=== PATIENT | male | born 1945 | race Caucasian/White ===

== ENCOUNTER 2017-05-09 13:32 | Observation (INO) | payer OTHER, MEDICARE ==
[~2017-05-09] VITALS: Ht 167.6 cm; Wt 109.0 kg
[2017-05-09 13:41] VITALS: BP 139/71; PULSE 75; RESP 17; TEMP 97.7; O2SAT 96
[2017-05-09 13:47] VITALS: BP 139/71; PULSE 85; RESP 23; O2SAT 96
[2017-05-09] MEDS ORDERED: ATOR1TAB18 PO (14:05)
[2017-05-09] MEDS ORDERED: METF1000 PO (14:05)
[2017-05-09] MEDS ORDERED: PLAV75TA29 PO (14:05)
[2017-05-09] MEDS ORDERED: GABA600T PO (14:05)
[2017-05-09] MEDS ORDERED: AMLO10TA2 PO (14:05)
[2017-05-09] MEDS ORDERED: LANTUS2P SQ (14:05)
[2017-05-09] MEDS ORDERED: COUM1TAB PO (14:05)
[2017-05-09] MEDS ORDERED: METO100T PO (14:05)
[2017-05-09] MEDS ORDERED: EMPA1TAB3 PO (14:05)
[2017-05-09] MEDS ORDERED: ALLO100T PO (14:05)
[2017-05-09] MEDS ORDERED: ASPI1TAB91 PO (14:05)
[2017-05-09 14:14] LABS: AUTOMATED NEUTROPHIL # 12.9 TH/MM3 (1.8-7.7); BASOPHIL # 0.1 TH/MM3 (0-0.2); BASOPHIL % 0.7 % (0.0-2.0); EOSINOPHIL # 0.2 TH/MM3 (0-0.4); EOSINOPHIL % 1.4 % (0.0-4.0); HEMATOCRIT 39.7 % (39.0-51.0); HEMO FLAGS DIFF FINAL; LYMPH % 11.7 % (9.0-44.0); LYMPHOCYTE # 1.9 TH/MM3 (1.0-4.8); MEAN CELL VOLUME 91.2 FL (80.0-100.0); MEAN CORPUSCULAR HGB CONC 31.8 % (32.0-36.0); NEUT % 81.2 % (16.0-70.0); PLATELET COUNT 460 TH/MM3 (150-450); RED BLOOD COUNT 4.36 MIL/MM3 (4.50-5.90); RED CELL DISTRIBUTION WIDTH 15.3 % (11.6-17.2); WHITE BLOOD COUNT 15.9 TH/MM3 (4.0-11.0)
[2017-05-09 14:27] LABS: ALT (GPT) 25 U/L (12-78); ANION GAP 9 MEQ/L (5-15); AST (GOT) 19 U/L (15-37); BICARBONATE 30.8 MEQ/L (21.0-32.0); BLOOD UREA NITROGEN 20 MG/DL (7-18); CHLORIDE 98 MEQ/L (98-107); GLOMERULAR FILTRATION RATE 48 ML/MIN (>89); MAGNESIUM 1.9 MG/DL (1.5-2.5); POTASSIUM 4.1 MEQ/L (3.5-5.1); SODIUM (NA) 138 MEQ/L (136-145)
[2017-05-09 14:30] LABS: PROTHROMBIN TIME - PATIENT 105.3 SEC (9.8-11.6)
--- NOTE | 2017-05-09 14:34 | PD ---
HPI Chief Complaint: Pain: Acute or Chronic Time Seen by Provider: 14:29 Travel History International Travel<30 days: No Contact w/Intl Traveler<30days: No Traveled to known affect area: No History of Present Illness HPI 71-year-old male that presents to the ED for evaluation of chest pain to raise to the scapula. Per patient in only comes with inspiration. Patient states that last week he had an elective CABG 1 as well as aortic valve replacement. This was done and a [facility] in [place]. Per patient she's been compliant with the medications and takes Coumadin. Per patient today he woke up with this discomfort. Patient went to the [facility] and they sent him here for evaluation. He states that the pain is 6 out of 10 and gets worse with deep breaths. Otherwise he has not discomfort. He denies any injury or trauma. He denies any fevers chills or sweats. No cough or runny nose. Having bowel movements as well as urine. He has no allergies to medication. No head injury. No headache. He has not taken his medications this morning as he went to the [facility] secondary to his symptoms. He has not prepress specialist in the area of. With the [facility] for most of his care. From records Dr. Fallon. Unclear as to the name of the surgeon. PFSH Past Medical History Cardiovascular Problems: Yes (VALVE REPAIR) High Cholesterol: Yes Chest Pain: Yes Diabetes: Yes Patient Takes Glucophage: Yes Gout: Yes Hiatal Hernia: Yes Hypertension: Yes Inguinal Hernia: Yes Medical other: Yes (VERTIGO) Myocardial Infarction: Yes Pneumonia: Yes Triglycerides - High: Yes Influenza Vaccination: Yes Past Surgical History Cardiac Surgery: Yes (VALVE REPAIR / CABG X 1 / 3 STENTS) Other Surgery: Yes (NASAL SURGERY / RT EYE SURGERY) Social History Alcohol Use: No Tobacco Use: No Substance Use: No Allergies-Medications (Allergen,Severity, Reaction): Coded Allergies: No Known Allergies (Unverified , 05/09/17) Reported Meds & Prescriptions Reported Meds & Active Scripts Active Reported Gabapentin 600 Mg Tab 300 Mg PO TID Allopurinol 100 Mg Tab 400 Mg PO DAILY Metoprolol Tartrate 100 Mg Tab 200 Mg PO BID Plavix (Clopidogrel Bisulfate) 75 Mg Tab 75 Mg PO DAILY Atorvastatin (Atorvastatin Calcium) 80 Mg Tab 40 Mg PO HS Amlodipine (Amlodipine Besylate) 10 Mg Tab 10 Mg PO DAILY Lantus Inj (Insulin Glargine) 100 Unit/Ml Inj 50 Units SQ DAILY Aspirin Adult Low Strength (Aspirin) 81 Mg Tabdr 81 Mg PO DAILY Metformin (Metformin HCl) 1,000 Mg Tab 1,000 Mg PO BID With meals Jardiance (Empagliflozin) 25 Mg Tab 12.5 Mg PO DAILY Coumadin (Warfarin) Unknown Strength Tab 1 Tab PO DAILY Review of Systems Except as stated in HPI: all other systems reviewed are Neg Physical Exam Narrative GENERAL: SKIN: Warm and dry. Patient has a almost 15-20 cm surgical scar on the mid chest. No sign of infection or deformity noted. Some inflammatory changes noted. HEAD: Atraumatic. Normocephalic. EYES: Pupils equal and round 4 mm reactive to light and accommodation. No scleral icterus. No injection or drainage. ENT: No nasal bleeding or discharge. Mucous membranes pink and moist. Tongue is midline. No uvula deviation. NECK: Trachea midline. No JVD. CARDIOVASCULAR: Regular rate and rhythm. No murmurs, S3, S4. RESPIRATORY: No accessory muscle use. Clear to auscultation. Breath sounds equal bilaterally. GASTROINTESTINAL: Abdomen soft, non-tender, nondistended. Hepatic and splenic margins not palpable. MUSCULOSKELETAL: Extremities without clubbing, cyanosis, or edema. No obvious deformities. NEUROLOGICAL: Awake and alert. No obvious cranial nerve deficits. Motor grossly within normal limits. Five out of 5 muscle strength in the arms and legs. Normal speech. PSYCHIATRIC: Appropriate mood and affect; insight and judgment normal. Data Data Last Documented VS Vital Signs Date Time Temp Pulse Resp B/P Pulse Ox O2 Delivery O2 Flow Rate FiO2 05/09/17 15:29 84 12 126/62 95 Room Air 05/09/17 13:41 97.7 Orders Electrocardiogram (05/09/17 13:49) Complete Blood Count With Diff (05/09/17 13:49) Comprehensive Metabolic Panel (05/09/17 13:49) Ckmb (Isoenzyme) Profile (05/09/17 13:49) Troponin I (05/09/17 13:49) B-Type Natriuretic Peptide (05/09/17 13:49) Prothrombin Time / Inr (Pt) (05/09/17 13:49) Act Partial Throm Time (Ptt) (05/09/17 13:49) Blood Culture (05/09/17 13:49) Lipase (7/3/17 13:49) Urinalysis - C+S If Indicated (05/09/17 13:49) Magnesium (Mg) (05/09/17 13:49) Thyroid Stimulating Hormone (05/09/17 13:49) Chest, Single Ap (05/09/17 13:49) Iv Access Insert/Monitor (05/09/17 13:49) Ecg Monitoring (05/09/17 13:49) Oximetry (05/09/17 13:49) Cta Thor Abd Aorta W Iv C W3d (05/09/17 ) Iohexol 350 Inj (Omnipaque 350 Inj) (05/09/17 15:13) Admit Order (Ed Use Only) (05/09/17 16:18) Labs Laboratory Tests Test 05/09/17 05/09/17 05/09/17 14:05 14:06 15:00 Sodium Level 138 MEQ/L Potassium Level 4.1 MEQ/L Chloride Level 98 MEQ/L Carbon Dioxide Level 30.8 MEQ/L Anion Gap 9 MEQ/L Blood Urea Nitrogen 20 MG/DL Creatinine 1.44 MG/DL Estimat Glomerular Filtration 48 ML/MIN Rate Random Glucose 127 MG/DL Calcium Level 9.6 MG/DL Magnesium Level 1.9 MG/DL Total Bilirubin 0.7 MG/DL Aspartate Amino Transf 19 U/L (AST/SGOT) Alanine Aminotransferase 25 U/L (ALT/SGPT) Alkaline Phosphatase 122 U/L Total Creatine Kinase 49 U/L Troponin I 0.03 NG/ML B-Type Natriuretic Peptide 60 PG/ML Total Protein 8.5 GM/DL Albumin 3.8 GM/DL Lipase 162 U/L Thyroid Stimulating Hormone 5.350 uIU/ML 3rd Gen White Blood Count 15.9 TH/MM3 Red Blood Count 4.36 MIL/MM3 Hemoglobin 12.6 GM/DL Hematocrit 39.7 % Mean Corpuscular Volume 91.2 FL Mean Corpuscular Hemoglobin 29.0 PG Mean Corpuscular Hemoglobin 31.8 % Concent Red Cell Distribution Width 15.3 % Platelet Count 460 TH/MM3 Mean Platelet Volume 8.0 FL Neutrophils (%) (Auto) 81.2 % Lymphocytes (%) (Auto) 11.7 % Monocytes (%) (Auto) 5.0 % Eosinophils (%) (Auto) 1.4 % Basophils (%) (Auto) 0.7 % Neutrophils # (Auto) 12.9 TH/MM3 Lymphocytes # (Auto) 1.9 TH/MM3 Monocytes # (Auto) 0.8 TH/MM3 Eosinophils # (Auto) 0.2 TH/MM3 Basophils # (Auto) 0.1 TH/MM3 CBC Comment DIFF FINAL Differential Comment Prothrombin Time 105.3 SEC Prothromb Time International 8.7 RATIO Ratio Activated Partial 63.0 SEC Thromboplast Time Urine Color LIGHT-RED Urine Turbidity CLEAR Urine pH 6.0 Urine Specific [place] 1.026 Urine Protein TRACE mg/dL Urine Glucose (UA) 1000 mg/dL Urine Ketones NEG mg/dL Urine Occult Blood NEG Urine Nitrite NEG Urine Bilirubin NEG Urine Urobilinogen 2.0 MG/DL Urine Leukocyte Esterase NEG Urine RBC 1 /hpf Urine WBC 2 /hpf Urine Squamous Epithelial <1 /hpf Cells Microscopic Urinalysis Comment CULT NOT INDICATED MDM Medical Decision Making Medical Screen Exam Complete: Yes Emergency Medical Condition: Yes Medical Record Reviewed: Yes Interpretation(s) CBC & BMP Diagram 05/09/17 14:05 05/09/17 14:06 LFTs within normal limits. Lipase within normal limits. TSH of 5. Last Impressions Chest X-Ray 05/09/17 1349 Signed Impressions: Service Date/Time: Tuesday, May 09, 2017 13:48 - CONCLUSION: No acute disease. Jax Ku MD CT of the aorta did not show any sign of dissection or disease other than possible gallbladder disease or inflammation. Troponin and CK-MB negative. EKG shows sinus rhythm with no sign of acute ischemia or arrhythmia read by me and attending. Coags shows INR of 8.7 UA negative Differential Diagnosis Chest pain versus PE versus aortic dissection versus ACS versus hypertension versus pleurisy versus pneumothorax versus pneumonia versus infection postsurgery Narrative Course 71-year-old male that presents to the ED for evaluation of chest pain. Patient was properly examined and was found to have signs and symptoms of unclear etiology. Patient had recent cardiac surgery. Labs and imaging ordered. Case discussed with my attending Dr. Martinez who agrees with plan. She recommends CT of the thorax of the aorta. This was all ordered. Labs and imaging were essentially unremarkable other than for elevated levels account as well as very high INR. No sign of infection from the surgical scar. My attending Dr. Martinez evaluated the patient with me and agrees with plan. Unfortunately patient does have an aortic valve replacement and his Coumadin level was way too high. She recommends admission to the medical team for evaluation of Coumadin toxicity. She recommends against antidote for the patient secondary to patient having recent valve replacement and requiring anticoagulations for this. [facility] was paged and Dr Singleton agrees to admission. At 1630 Dr. Huang came and evaluated the patient and recommended that the patient be discharged secondary to fall is not using anything to prevent the toxicity. My attending Dr. Martinez myself and Dr. Huang spoke with the patient at length. He agrees with this plan. Patient was told to hold of his Coumadin for the next 3 days and get his INR rechecked in 3 days as he already has an appointment on . She will be discharged home. Procedures EKG Prior to Arrival: No Diagnosis Primary Impression: Warfarin-induced coagulopathy Additional Impression: Chest pain Qualified Code: R07.1 - Chest pain on breathing Admitting Information Admitting Physician Requests: Observation Patient Instructions: General Instructions Additional Instructions: Do not take your Coumadin for 3 days and get her blood checked on . See ED for any worsening symptoms. Med/Other Pt SpecificInfo: Med Stopped (stop coumadin till ) Disposition: 01 DISCHARGE HOME Condition: Stable Rony Gonzalez May 09, 2017 14:34
--- NOTE | 2017-05-09 14:35 | RADRPT ---
EXAM DATE/TIME: 05/09/2017 13:48 [facility] COMPARISON: No previous studies available for comparison. INDICATIONS : Mid thoracic back pain with shortness of breath. S/P CABG [place] 4 weeks ago. MEDICAL HISTORY : Congestive heart failure. Myocardial infarction. SURGICAL HISTORY : CABG. ENCOUNTER: Initial ACUITY: 1 day PAIN SCORE: 9/10 LOCATION: Left chest FINDINGS: A single view of the chest demonstrates the lungs to be symmetrically aerated without evidence of mas s, infiltrate or effusion. There is some elevation of the right hemidiaphragm. The cardiomediastinal contours are unremarkable. There is evidence of previous cardiothoracic surgery. Osseous structures a re intact. CONCLUSION: No acute disease. Jax Ku MD on May 09, 2017 at 14:33 Board Certified Radiologist. This report was verified electronically.
[2017-05-09 14:36] LABS: ALKALINE PHOSPHATASE 122 U/L (45-117); TOTAL BILIRUBIN ADULT 0.7 MG/DL (0.2-1.0)
[2017-05-09 14:37] LABS: CREATINE KINASE 49 U/L (39-308)
[2017-05-09 14:40] LABS: INTERNATIONAL NORMALIZED RATIO 8.7 RATIO
[2017-05-09] MEDS ORDERED: IOHEXOL 350 MG/ML 10 ML VIAL (for RAD DIAG) IV ONE (15:13)
[2017-05-09 15:29] VITALS: BP 126/62; PULSE 84; RESP 12; O2SAT 95
[2017-05-09 15:34] LABS: BLOOD, URINE NEG (NEG); COMMENT (UR) CULT NOT INDICATED; CULTURE IF INDICATED CULT NOT INDICATED; GLUCOSE,URINE 1000 mg/dL (NEG); KETONE, URINE NEG (NEG); NITRITE,URINE NEG (NEG); SQUAMOUS EPITHELIAL CELL URINE <1 /hpf (0-5)
[2017-05-09 15:36] LABS: URINE COLOR LIGHT-RED (YELLW/STRAW)
--- NOTE | 2017-05-09 15:50 | RADRPT ---
EXAM DATE/TIME: 05/09/2017 14:54 [facility] COMPARISON: No previous studies available for comparison. INDICATIONS : Recent open heart surgery. Chest pain that radiates to the back. IV CONTRAST: 100 cc Omnipaque 350 (iohexol) IV RADIATION DOSE: 17.33 CTDIvol (mGy) MEDICAL HISTORY : Cardiovascular disease. Diabetes mellitus type 2. SURGICAL HISTORY : CABG ENCOUNTER: Initial ACUITY: 1 day PAIN SCALE: 0/10 LOCATION: Bilateral chest TECHNIQUE: Volumetric scanning was performed using a multi-row detector CT scanner. The data was post processed with a variety of visualization algorithms including full volume maximum intensity projection, multi -planar sliding thin slab reformation, curved planar reformation, and surface rendering techniques. Using automated exposure control and adjustment of the mA and/or kV according to patient size, radiat ion dose was kept as low as reasonably achievable to obtain optimal diagnostic quality images. DICOM format image data is available electronically for review and comparison. FINDINGS: There is subsegmental atelectasis in the both bases. Examination of the mediastinum demonstrates no abnormally enlarged lymph nodes by CT criteria. No axillary or hilar abnormalities are identified. Co ronary artery calcifications are present. The liver and spleen are normal in size and no focal defects are identified. The gallbladder and panc reas are unremarkable. No intrahepatic or extrahepatic ductal dilatation is seen. The gallbladder is normal without wall thickening or pericholecystic fluid. There are calcifications of chronic calcific pancreatitis without acute findings. The adrenal glands and kidneys appear normal bilaterally. No hy dronephrosis or mass lesions are identified. Examination of the pelvis demonstrates no evidence of fr ee fluid or pelvic mass. No abnormally enlarged inguinal or retroperitoneal lymph nodes are present. There is increased density in the left side of the bladder which may reflect hematoma though a mural mass is not excluded. The prostate gland is moderately enlarged impinging on the bladder base.There i s diverticulosis without evidence of diverticulitis. Examination of the aortic arch demonstrates no evidence of aneurysm or dissection. The descending th oracic aorta is unremarkable and the aortic root is normal in size. The aorta is normal in caliber. T here is no evidence of aneurysm or dissection. The renal artery origins are patent bilaterally. The c eliac axis and superior mesenteric artery origins are also patent. An accessory left renal artery is present. CONCLUSION: 1. No evidence of aortic dissection. 2. Chronic calcific pancreatitis 3. Possible mucosal abnormality in the bladder. Cystoscopy is recommended for further evaluation if c linically indicated. Hieu Chacko MD on May 09, 2017 at 15:43 Board Certified Radiologist. This report was verified electronically.
--- NOTE | 2017-05-10 13:29 | EKG ---
Date Performed: 05/09/2017 Time Performed: 13:43:22 PTAGE: 71 years EKG: Sinus rhythm MODERATE INTRAVENTRICULAR CONDUCTION DELAY NONSPECIFIC ST & T-WAVE ABNORMALITY BORDERLINE ECG NO PREVIOUS TRACING DOCTOR: Jose Armando Chamorro Interpretating Date/Time 05/10/2017 13:22:18
== END 2017-05-09 17:37 | disposition home or self-care (01) ==
LOC: NEPC 13:32 → NEDA 16:20
PROVIDERS: ADMIT Hospitalist; ATTEND Hospitalist
DX: R07.1 Chest pain on breathing (principal); T45.515A Adverse effect of anticoagulants, initial encounter; R79.1 Abnormal coagulation profile; M54.6 Pain in thoracic spine; R06.02 Shortness of breath; I11.0 Hypertensive heart disease with heart failure; I50.9 Heart failure, unspecified; E78.00 Pure hypercholesterolemia, unspecified; E11.9 Type 2 diabetes mellitus without complications; I25.2 Old myocardial infarction; Z95.2 Presence of prosthetic heart valve; Z95.1 Presence of aortocoronary bypass graft; Z79.899 Other long term (current) drug therapy; Z79.84 Long term (current) use of oral hypoglycemic drugs; Z79.82 Long term (current) use of aspirin; Z79.01 Long term (current) use of anticoagulants
CPT/HCPCS: 71010; 71275; 74174; 80053; 81001; 82550; 83690; 83735; 83880; 84443; 84484; 85025; 85610; 85730; 87040; 93005; 99285; G0378; Q9967